=== PATIENT | female | born 1975 | race Caucasian/White ===

== ENCOUNTER 2017-07-29 12:31 | Emergency (ER) | payer BC ==
[2017-07-29 12:40] VITALS: BP 161/98
--- NOTE | 2017-07-29 13:26 | ED Physician Documentation ---
PD HPI URI - Stated complaint Stated Complaint: THROAT PX - Chief complaint Chief Complaint: Heent - History obtained from History obtained from: Patient - History of Present Illness Timing - onset: How many days ago (2-3) Timing duration: Days Timing details: Abrupt onset, Still present Associated symptoms: Fever, Sore throat, Swollen nodes. No: Nasal congestion, Dry cough Contributing factors: No: Sick contact, Travel Similar symptoms before: Diagnosis (strep) Recently seen: Not recently seen Review of Systems Constitutional: reports: Fever, Chills, Myalgias Nose: denies: Rhinorrhea / runny nose, Congestion Throat: reports: Sore throat Respiratory: denies: Cough GI: denies: Nausea, Vomiting, Diarrhea Skin: denies: Rash, Lesions PD PAST MEDICAL HISTORY - Past Medical History Past Medical History: Yes Respiratory: Asthma - Past Surgical History Past Surgical History: Yes - Present Medications Home Medications: Ambulatory Orders Medication Instructions Recorded Confirmed Albuterol Sulfate [Proair Hfa 1 - 2 puffs IH BID 07/29/17 07/29/17 Inhaler] Beclomethasone 80 Mcg [Qvar 80] 1 - 2 puffs INH BID 07/29/17 07/29/17 Cephalexin [Keflex] 500 mg PO TID #21 capsule 07/29/17 Dexamethasone [Decadron] 4 mg PO DAILY #5 tablet 07/29/17 Hydrocodone Bit/Homatrop Me-Br 5 ml PO Q6H PRN #120 ml 07/29/17 [Hydrocodone-Homatropine Soln] - Allergies Allergies/Adverse Reactions: Allergies Allergy/AdvReac Type Severity Reaction Status Date / Time erythromycin base Allergy Unknown Verified 07/29/17 12:40 naproxen Allergy Unknown Verified 07/29/17 12:40 zolmitriptan [From Zomig] Allergy Unknown Verified 07/29/17 12:40 - Social History Does the pt smoke?: No Smoking Status: Never smoker PD ED PE NORMAL - Vitals Vital signs reviewed: Yes - General General: Alert and oriented X 3, No acute distress, Well developed/nourished - HEENT HEENT: Moist mucous membranes. No: Pharynx benign (swelling of tonsils with white spots and redness. No peritonsillar swelling. Normal swallow. ) - Neck Neck: Supple, no meningeal sign, Other (anterior nodes. ) - Cardiac Cardiac: RRR, No murmur - Respiratory Respiratory: Clear bilaterally - Abdomen Abdomen: Soft, Non tender - Derm Derm: Normal color, Warm and dry, No rash Results - Vitals Vitals: Oxygen O2 Source Room air - Labs Labs: Laboratory Tests 07/29/17 13:26 Group A Strep Rapid POSITIVE H PD MEDICAL DECISION MAKING - ED course Complexity details: reviewed results, considered differential (highly suspicious for strep ), d/w patient Departure - Departure Disposition: Home, Self Care Clinical Impression: Upper respiratory infection Qualifiers: URI type: unspecified URI Qualified Code(s): J06.9 - Acute upper respiratory infection, unspecified Condition: Stable Record reviewed to determine appropriate education?: Yes Instructions: ED Upper Resp Infec Abx Tx Prescriptions: Cephalexin [Keflex] 500 mg PO TID #21 capsule Dexamethasone [Decadron] 4 mg PO DAILY #5 tablet Hydrocodone Bit/Homatrop Me-Br [Hydrocodone-Homatropine Soln] 5 ml PO Q6H PRN # 120 ml PRN Reason: Cough Comments: Continue usual albuterol inhaler 2 puffs 4 times a day. Add Decadron steroid daily for 5 more days. Use hydrocodone if needed for pains and cough. Cephalexin 3 times daily for the next week for infection. This is medication from a category called cephalosporins. Recheck if not improving over the next several days. The throat culture will result in about 3 days. Discharge Date/Time: 07/29/17 14:07
[2017-07-29] MEDS ORDERED: DEXAMETHASONE 10 MG/ML VIAL PO STA (13:48)
[2017-07-29] MEDS ORDERED: BENZONATATE 100 MG CAPSULE PO STA (13:48)
[2017-07-29] MEDS ORDERED: HYDROcod/ACETAM 5/325 MG TABLET PO STA (13:48)
[2017-07-29] MEDS ORDERED: cephALEXin 250 MG CAPSULE PO STA (13:48)
== END 2017-07-29 14:07 | disposition home or self-care (01) ==
LOC: ED 12:31
DX: J06.9 Acute upper respiratory infection, unspecified (principal)
CPT/HCPCS: 87430; 99283; A9270